=== PATIENT | female | born 1970 | race Hispanic/Latino ===

== ENCOUNTER 2024-10-11 12:25 | Emergency (ER) | payer MEDICARE, MEDICAID ==
[~2024-10-11] VITALS: Ht 154.9 cm; Wt 78.5 kg
[2024-10-11 12:45] LABS: APPEARANCE,URINE CLEAR (CLEAR); BACTERIA,URINE RARE /HPF (None Seen); BILIRUBIN,URINE NEGATIVE (NEGATIVE); COLOR,URINE STRAW (YELLOW); GLUCOSE, URINE (UA) NEGATIVE (NEGATIVE); KETONES,URINE NEGATIVE (NEGATIVE); LEUKOCYTE ESTERASE ,URINE NEGATIVE Leu/uL (NEGATIVE); NITRATE,URINE NEGATIVE (NEGATIVE); OCCULT BLOOD,URINE NEGATIVE (NEGATIVE); PH,URINE 6.5 (5.0-8.0); PROTEIN,URINE NEGATIVE (NEGATIVE); RBC,URINE 0-1 /HPF (0-1); SQUAMOUS EPITHELIAL CELL,UR RARE /HPF (0-2); UROBILINOGEN,URINE 0.2 mg/dL (0.2-1.0)
[2024-10-11 12:55] LABS: BASOPHILS # (AUTO) 0.06 K/uL (0.00-0.20); BASOPHILS % (AUTO) 0.6 % (0.0-5.0); EOSINOPHILS # (AUTO) 0.03 K/uL (0.00-0.70); EOSINOPHILS % (AUTO) 0.3 % (0.0-8.0); HEMATOCRIT 41.6 % (36-48); IMMATURE GRANULOCYTE ABSOLUTE 0.03 K/uL (0-1); LYMPHOCYTES # (AUTO) 2.9 K/uL (1.0-4.8); MEAN CORPUSCULAR HEMOGLOBIN 30.2 pg (27.0-33.0); MEAN CORPUSCULAR HGB CONC 33.7 g/dL (32.0-36.0); MEAN CORPUSCULAR VOLUME 89.7 fL (79-99); MONOCYTES # (AUTO) 0.6 K/uL (0.1-1.0); NEUTROPHILS % (AUTO) 62.8 % (40.0-77.0); PLATELET COUNT (AUTO) 225 K/uL (130-400); RED BLOOD CELL COUNT(AUTO) 4.64 MIL/uL (4.00-5.50); RED CELL DISTRIBUTION WIDTH 13.6 % (11.0-15.5); WHITE BLOOD COUNT (AUTO) 9.5 K/uL (4.8-10.8)
[2024-10-11 13:02] LABS: CREATININE 0.7 mg/dL (0.5-1.0); POTASSIUM 3.6 mmol/L (3.5-5.1)
[2024-10-11 13:18] LABS: B-TYPE NATRIURETIC PEPTIDE 47 pg/mL (0-100)
--- NOTE | 2024-10-11 13:41 | HMCIMG ---
INDICATION: Chest pain TECHNIQUE: CHEST 1VW COMPARISON: None FINDINGS AND IMPRESSION: No acute consolidation or pleural effusion. Cardiac silhouette is within normal limits. Mild degenerative changes of the spine. The visualized upper abdomen appears unremarkable.
--- NOTE | 2024-10-11 13:48 | EKG ---
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
[2024-10-11] MEDS: PANTOPrazole 40 MG/VIAL IVP ONE (14:08)
[2024-10-11] MEDS: MAG/ALUM/SIMETH 30 ML UDCUP PO ONE (14:08)
[2024-10-11] MEDS: LIDOCAINE HCL 2% VISCOUS 15 ML UDCUP PO ONE (14:08)
[2024-10-11] MEDS ORDERED: OMEP10CA5 PO (14:27)
--- NOTE | 2024-10-11 14:27 | ERN ---
General Chief Complaint: Chest Pain Stated Complaint: CP Time Seen by MD: 12:29 Time Seen by Midlevel: 12:29 Source: patient History of Present Illness Initial Comments 54-year-old female who presents to the emergency department due to chest pain onset two days. Patient denies any shortness of breath, cough, congestion, fever or further associated symptoms. The patient states she was seen in [place] two days ago due to chronic back pain for which she was prescribed multiple medications. Reports history of acid reflux otherwise denies further significant past medical history. Allergies: Coded Allergies: No Known Drug Allergies (Unverified Allergy, Unknown, 10/11/24) Home Meds Active Scripts Omeprazole (Omeprazole) 10 Mg Capsule.dr, 1 CAP PO DAILY for 7 Days, #7 CAP 0 Refills Prov:JOSE ALEJANDRO DILLON 10/11/24 Past Medical History Past Medical History: No Pertinent History Medical History Other: denies pmhx Past Surgical History: Hysterectomy, Other Surgical History Other: brooke shoulder sx ROS Dictation Constitutional: Negative for fever,chills, and weight loss Eyes: Negative for injury, pain,redness, and discharge ENT: Negative for injury,pain or swelling Cardiovascular: Positive for chest pain Negative for palpitations, and edema Respiratory: Negative for shortness of breath, cough, and wheezing, Abdomen/GI: Negative for abdominal pain, nausea, vomiting, diarrhea, and constipation Back: Negative for injury and pain : Negative for painful urination, bleeding or discharge MS/Extremity: Negative for injury and deformity Skin: Negative for rash, and discoloration Neuro: Negative for headache, weakness, numbness, tingling, and seizure Psych: Negative for suicide ideation, homicidal ideation, and hallucinations Physical Exam Physical Exam Dictation General: awake, alert, no acute distress Head/Face: Normocephalic, atraumatic Eyes: PERRL, EOMI, normal conjunctiva ENT: oral cavity clear, oral mucosa moist Neck: Supple, normal range of motion Cardiovascular: RRR, normal S1/S2 Respiratory: CTAB, no respiratory distress, no rales or wheezes Abdomen: Soft, non-tender, non-distended, no guarding or rebound. Skin: Warm, dry, normal turgor, no rash MS/Extremity: Pulses equal, no cyanosis, neurovascular intact, FROM Neuro: COAx4, GCS 15, strength 5/5, CN 2-12 intact, normal cerebellar exam, normal gait Psych: Normal behavior, mood, and affect normal Results Laboratory and Microbiology Lab and Micro Result Laboratory Tests Test 10/11/24 12:33 10/11/24 12:51 Urine Color STRAW (YELLOW) Urine Appearance CLEAR (CLEAR) Urine pH 6.5 (5.0-8.0) Urine Specific [place] 1.003 (1.001-1.031) Urine Protein NEGATIVE mg/dL (NEGATIVE) Urine Glucose (UA) NEGATIVE mg/dL (NEGATIVE) Urine Ketones NEGATIVE mg/dL (NEGATIVE) Urine Occult Blood NEGATIVE (NEGATIVE) Urine Nitrate NEGATIVE (NEGATIVE) Urine Bilirubin NEGATIVE mg/dL (NEGATIVE) Urine Urobilinogen 0.2 mg/dL (0.2-1.0) Urine Leukocyte Esterase NEGATIVE [place]/uL Urine RBC 0-1 /HPF (0-1) Urine WBC None /HPF (0-1) Urine Squamous Epithelial Cells RARE /HPF (0-2) Urine Bacteria RARE /HPF (None Seen) White Blood Count 9.5 K/uL (4.8-10.8) Red Blood Count 4.64 MIL/uL (4.00-5.50) Hemoglobin 14.0 g/dL (12.0-16.0) Hematocrit 41.6 % (36-48) Mean Corpuscular Volume 89.7 fL (79-99) Mean Corpuscular Hemoglobin 30.2 pg (27.0-33.0) Mean Corpuscular Hemoglobin Concent 33.7 g/dL (32.0-36.0) Red Cell Distribution Width 13.6 % (11.0-15.5) Platelet Count 225 K/uL (130-400) Mean Platelet Volume 11.0 fL (7.5-10.5) H Immature Granulocyte % (Auto) 0.3 % (0-1) Neutrophils (%) (Auto) 62.8 % (40.0-77.0) Lymphocytes (%) (Auto) 30.0 % (21.0-51.0) Monocytes (%) (Auto) 6.0 % (3.0-13.0) Eosinophils (%) (Auto) 0.3 % (0.0-8.0) Basophils (%) (Auto) 0.6 % (0.0-5.0) Neutrophils # (Auto) 6.0 K/uL (1.8-7.7) Lymphocytes # (Auto) 2.9 K/uL (1.0-4.8) Monocytes # (Auto) 0.6 K/uL (0.1-1.0) Eosinophils # (Auto) 0.03 K/uL (0.00-0.70) Basophils # (Auto) 0.06 K/uL (0.00-0.20) Absolute Immature Granulocyte (auto 0.03 K/uL (0-1) Nucleated Red Blood Cells 0.0 % (0.0-0.19) Sodium Level 140 mmol/L (136-145) Potassium Level 3.6 mmol/L (3.5-5.1) Chloride Level 105 mmol/L (101-111) Carbon Dioxide Level 30 mmol/L (21-32) Blood Urea Nitrogen 20 mg/dL (7-18) H Creatinine 0.7 mg/dL (0.5-1.0) Glomerular Filtration Rate Calc 103 mL/min (>90) Random Glucose 103 mg/dL (70-105) Total Calcium 8.8 mg/dL (8.5-10.1) Troponin I High Sensitivity 5 ng/L (4-50) B-Type Natriuretic Peptide 47 pg/mL (0-100) Labs Reviewed?: Yes EKG/XRAY/US/CT/MRI EKG Comment Date: 10/11/24 Time: 1228 Rate: 95 EKG interpretation: Sinus rhythm, no STEMI Reviewed by ED Attending X-RAY Comment REASON: Chest pain ORDERING PHYSICIAN: JOSE ALEJANDRO DILLON PROCEDURE: CXR1VW - CHEST 1VW INDICATION: Chest pain TECHNIQUE: CHEST 1VW COMPARISON: None FINDINGS AND IMPRESSION: No acute consolidation or pleural effusion. Cardiac silhouette is within normal limits. Mild degenerative changes of the spine. The visualized upper abdomen appears unremarkable. DICTATED BY: RAFAEL DEL CID MD DATE: 10/11/24 1337 MDM MDM: Differential diagnosis: Acid reflux, [place], ACS Rationale: 54-year-old female who presents to the emergency department due to chest pain onset two days. Patient denies any shortness of breath, cough, congestion, fever or further associated symptoms. The patient states she was seen in [place] two days ago due to chronic back pain for which she was prescribed multiple medications. Reports history of acid reflux otherwise denies further significant past medical history. Per physical examination patient is in no acute distress, nonlabored breathing. Labs obtained CBC and BNP within normal limits, troponin negative, EKG within normal limits. Heart score one low risk. Patient was administered GI cocktail and on re-examination verbalized pain had resolved. Patient was educated on findings and diagnosis. Advised to follow up with PCP. Return to the emergency department if any worsening symptoms. Patient verbalized understanding. Patient stable for discharge. There are no social concerns with this patient. I independently interpreted the test that were performed, results were reviewed by me and considered findings on radiology if ordered. Medical management and examination interpretation discussions were had by me with other qualified healthcare professionals as indicated for the patient's care. ED Course Orders Procedure Category Date Status Time Cbc With Differential LAB 10/11/24 Complete 12:30 Basic Metabolic Panel LAB 10/11/24 Complete 12:30 Urinalysis LAB 10/11/24 Complete W/Microscopic 12:30 B-Type Natriuretic LAB 10/11/24 Complete Peptide 12:30 Troponin I High LAB 10/11/24 Complete Sensitivity 12:30 12 Lead Ekg Tracing- EKG 10/11/24 Complete Technical 12:30 Chest 1vw RAD 10/11/24 Resulted 12:30 Mag/Alum/Simeth 30ml PHA 10/11/24 Complete (Maalox Plus 30ml) 14:00 Lidocaine Hcl 2% PHA 10/11/24 Complete Viscous (Lidocaine Hcl 14:00 Pantoprazole 40mg Inj PHA 10/11/24 Complete (Protonix 40mg Inj 14:00 Current Medications Medications (Trade) Dose Ordered Sig/Alex Route PRN Reason Start Time Stop Time Status Last Admin Dose Admin Al Hydroxide/Mg Hydroxide (MAALox PLUS 30ML) 30 ml ONCE ONCE PO 10/11/24 14:00 10/11/24 14:01 DC 10/11/24 14:08 Lidocaine HCl (Lidocaine HCl 2% Viscous) 10 ml ONCE ONCE PO 10/11/24 14:00 10/11/24 14:01 DC 10/11/24 14:08 Pantoprazole Sodium (PROTonix 40MG INJ) 40 mg ONCE ONCE IVP 10/11/24 14:00 10/11/24 14:01 DC 10/11/24 14:08 Vital Signs Date Time Temp Pulse Resp B/P (MAP) Pulse Ox O2 Delivery O2 Flow Rate FiO2 10/11/24 14:30 98.4 64 16 125/64 97 Room Air* 0 21 10/11/24 12:36 98.4 87 20 137/85 99 Room Air* 0 21 10/11/24 12:30 98.4 87 20 137/85 99 Nasal Cannula 0 HEART Score Response (Comments) Value History: Low suspicion (0) 0 EKG: Normal 0 Age: 45-65yrs (+1) 1 Risk Factors: No known risk factors (0) 0 Initial Troponin: Normal limit (0) 0 HEART Score Risk: Low Risk for MACE (1-3) Total 1 DX & DISP Disposition: Discharge Departure Impression: Primary Impression: Chest pain with low risk for cardiac etiology Condition: Stable Scripts Omeprazole (Omeprazole) 10 Mg Capsule.dr 1 CAP PO DAILY for 7 Days, #7 CAP 0 Refills Prov: JOSE ALEJANDRO DILLON 10/11/24 Additional Instructions: Discharge home. Rest. Follow up with primary care DrKat in 24 hours. Return to the ER for any acute changes or worsening symptoms. If any medications were prescribed take as directed. Okay to continue home medications unless otherwise discussed during your visit in the emergency room today. Patient was also advised to follow-up with primary care physician in 1 to 2 days for continued monitoring. Referrals: SELF,REFERRAL (PCP) I performed the substantive portion of the visit. I have reviewed and personally made and approve the management plan that is documented in the notes by myself or the DANIEL. I acknowledge full responsibility for the patient's management plan. JOSE ALEJANDRO DILLON Oct 11, 2024 14:27
[2024-10-11 14:30] VITALS: BP 125/64; PULSE 64; RESP 16; TEMP 98.4; O2SAT 97
--- NOTE | 2024-10-11 14:45 | NUR ---
DISCHARGED AT THIS TIME. UNABLE TO DEPART FROM [facility] DUE TO REGISTRATION STAFF ON ACCOUNT.
== END 2024-10-11 14:45 | disposition home or self-care (01) ==
LOC: EDH 12:25
DX: R07.89 Other chest pain (principal); Z79.899 Other long term (current) drug therapy; Z90.710 Acquired absence of both cervix and uterus
CPT/HCPCS: 99285; 96374; 71045; 84484; 80048; 83880; 85025; 81001; 36415; 93005; J2470